=== PATIENT | female | born 1960 | race Caucasian/White ===

== ENCOUNTER 2016-08-25 06:58 | Day surgery (SDC) | END 2016-08-25 12:55 | disposition home or self-care (01) | DX: I25.10 Atherosclerotic heart disease of native coronary artery without angina pectoris (principal); I25.2 Old myocardial infarction | CPT/HCPCS: 80048; 85025; 85610; 85730; 93005; 93458; C1769; C1887; J1644; J2250; J3010; Z7610 ==

== ENCOUNTER 2016-12-23 07:54 | Day surgery (SDC) | payer OTHER ==
[~2016-12-23] VITALS: Ht 152.4 cm; Wt 109.9 kg
[~2016-12-23 07:54] MED LIST: AMLO-147 PO; ASPI-535 PO; ATOR40TA68 PO; Carvedilol PO; HYDR12.53 PO; LOSA100T47 PO; METF500T4 PO; MULT1TAB6 PO; PANT40TA4 PO; RANI150T9 PO
[2016-12-23] MEDS ORDERED: LIDOCAINE 2% (SDV) 5 ML INJ ONE (08:39)
[2016-12-23] MEDS ORDERED: PROPOFOL 20 ML ONE (08:39)
[2016-12-23] MEDS ORDERED: MIDAZOLAM 1 MG/ML 2 ML INJ ONE (08:40)
[2016-12-23 08:42] VITALS: Ht 152.4 cm; Wt 109.9 kg
[2016-12-23] MEDS ORDERED: OMEGA 3 (08:48)
[2016-12-23 09:41] VITALS: BP 143/73; PULSE 59; RESP 20
--- NOTE | 2016-12-23 10:38 | GILP ---
DATE OF PROCEDURE: PROCEDURE: EGD with biopsy. INDICATION: A 56-year-old female undergoing this procedure for abdominal pain of 2 years' duration. The risk of the procedure, related and unrelated complications, anesthetic risks and alternatives discussed and informed consent was obtained. DESCRIPTION OF PROCEDURE: The patient was brought to the GI lab, sedated by Dr. Sommer. After obtain ment of sedation, scope was passed with much ease into esophagus. Esophagus was grossly within norm al limits. Z line was at 36 cm. The patient had of esophageal ulcer at Z line consistent with the diagnosis of LA class B esophagitis. She also had a linear erosion in the distal part of the esopha shawn, stomach, mucosa revealed gastritis. Duodenum, first and second part was within normal limits. Multiple biopsies obtained from stomach to rule out H. pylori infection. Duodenum was normal, both first and second part including ampulla. Scope was then straightened out and removed with good pat ient tolerance. IMPRESSION: 1. Erosive esophagitis, LA class B. 2. Chronic gastritis. 3. Small hiatal hernia. 4. Normal duodenum. PLAN: Review histopathology. Will start the patient empirically on PPI. Dictated By: RAQUEL GARCIA/NTS Conf#: [id number] DID#: [id number] CC: RAQUEL KAUR MD;*EndCC*
== END 2016-12-23 18:00 | disposition home or self-care (01) ==
LOC: GIL 07:54
PROVIDERS: ATTEND Internal Medicine Gastroenterology
DX: K20.8 Other esophagitis (principal); K29.50 Unspecified chronic gastritis without bleeding; K44.9 Diaphragmatic hernia without obstruction or gangrene; I10 Essential (primary) hypertension; E11.9 Type 2 diabetes mellitus without complications; E78.5 Hyperlipidemia, unspecified; E66.01 Morbid (severe) obesity due to excess calories; Z68.42 Body mass index [BMI] 45.0-49.9, adult
CPT/HCPCS: 43239; 82962; 88305; 88312; J2250; Z7610

== ENCOUNTER 2017-10-19 08:47 | Emergency (ER) | END 2017-10-19 11:55 | disposition home or self-care (01) ==

== ENCOUNTER 2018-04-16 17:43 | Emergency (ER) | END 2018-04-16 18:48 | disposition home or self-care (01) ==

== ENCOUNTER 2018-08-07 13:22 | Emergency (ER) | payer OTHER ==
[~2018-08-07] VITALS: Ht 149.9 cm; Wt 115.3 kg
[~2018-08-07 13:22] MED LIST changes: +ALBU18HF INHALATION; +AZIT250T PO; +BENZ-6 PO; +ERYT1OIN6 BOTH EYES; +IBUP-1561 PO; +LOSA100T3 PO; -LOSA100T47 PO; +METF500T24 PO; -METF500T4 PO; +OMEGA 3; -PANT40TA4 PO; -RANI150T9 PO
[2018-08-07 13:34] VITALS: BP 138/78; PULSE 88; RESP 18; Ht 149.9 cm; Wt 115.3 kg
[2018-08-07] MEDS ORDERED: ONDANSETRON (ODT) 4 MG TAB ODT STA (14:04)
--- NOTE | 2018-08-07 14:07 | ERD ---
ER Documentation Chief Complaint Chief Complaint cough/[place], sore throat, fever x 3 days HPI 58-year-old female, with history of hypertension and diabetes, presents to the emergency department, complaining of 3 days with sore throat, fever, nausea, cough and general malaise. The patient denies chest pain, no shortness of breath. She has been taking Tylenol with modest improvement of the symptoms. ROS All systems reviewed and are negative except as per history of present illness. Medications Home Meds Active Scripts Acetaminophen* (Tylenol*) 325 Mg Tablet, 2 TAB PO Q8 PRN for PAIN AND OR ELEVATED TEMP, #20 TAB Prov:KYA SHULTZ MD 08/07/18 Amoxicillin* (Amoxicillin*) 500 Mg Cap, 500 MG PO TID for 10 Days, CAP Prov:KYA SHULTZ MD 08/07/18 Ibuprofen* (Motrin*) 400 Mg Tab, 400 MG PO Q6, #30 TAB Prov:HIMA DIEZ PA-C 04/16/18 Erythromycin Base (Erythromycin) 1 Gm Oint...g., 1 APPLIC BOTH EYES QID for 10 Days Prov:HIMA DIEZ PA-C 04/16/18 Albuterol Sulfate* (Ventolin HFA*) 18 Gm Hfa.aer.ad, 2 PUFF INHALATION Q4H, #1 INHALER Prov:DANIEL PARKINSON PA-C 10/19/17 Benzonatate* (Tessalon Perle*) 100 Mg Capsule, 100 MG PO Q8H PRN for COUGH, #20 CAP Prov:DANIEL PARKINSON PA-C 10/19/17 Azithromycin* (Zithromax*) 250 Mg Tablet, 250 MG PO .ZPACK DIRECTED, #6 TAB TAKE 500 MG (2 TABS) THE FIRST DAY THEN 250 MG (1 TAB) DAYS 2-5 Prov:DANIEL PARKINSON PA-C 10/19/17 Amlodipine Besylate* (Amlodipine Besylate*) 10 Mg Tablet, 10 MG PO DAILY, #90 TAB Prov:LIBERTAD SEAMAN MD 06/21/15 Hydrochlorothiazide (Hydrochlorothiazide) 12.5 Mg Cap, 12.5 MG PO DAILY, #90 Prov:LIBERTAD SEAMAN MD 06/21/15 [Carvedilol] 6.25 MG TAB No Conflict Check, 6.25 MG PO BID, #180 TAB Prov:LIBERTAD SEAMAN MD 06/21/15 Losartan Potassium* (Cozaar*) 100 Mg Tablet, 100 MG PO BID, #180 Prov:LIBERTAD SEAMAN MD 06/21/15 Reported Medications [[place] 3] No Conflict Check 12/23/16 Aspirin Ec (Aspir 81) 81 Mg Tablet.dr, 81 MG PO DAILY, #30 TAB 08/25/16 Atorvastatin* (Atorvastatin*) 40 Mg Tablet, 40 MG PO HS, TAB 06/19/15 Folic Acid/Mv,Fe,Other Min (Centrum Complete Multivit Tab) 1 Each Tablet, 1 EACH PO DAILY 12/21/14 Metformin Hcl* (Metformin Hcl*) 500 Mg Tablet, 500 MG PO DAILY 12/12/13 Allergies Allergies: Coded Allergies: No Known Drug Allergies (Verified Allergy, Unknown, 08/25/16) PMhx/Soc History of Surgery: Yes (HYSTERECTOMY, KNEE, KIDNEY) Anesthesia Reaction: No Hx Neurological Disorder: No Hx Respiratory Disorders: No Hx Cardiac Disorders: No (HYPERTENSION) Hx Psychiatric Problems: No Hx Miscellaneous Medical Probl: Yes (HYPERLIPIDEMIA) Hx Alcohol Use: No Hx Substance Use: No Hx Tobacco Use: No Smoking Status: Never smoker FmHx Family History: diabetes; No coronary disease Physical Exam Vitals Vital Signs Date Temp Pulse Resp B/P (MAP) Pulse Ox O2 O2 Flow FiO2 Time Delivery Rate 08/07/18 97.7 88 18 138/78 96 13:34 (98) Physical Exam Const: No acute distress Head: Atraumatic Eyes: Normal Conjunctiva ENT: Tonsils enlarged with bilateral exudates. Neck: Full range of motion. No meningismus. Resp: Clear to auscultation bilaterally Cardio: Regular rate and rhythm, no murmurs Abd: Soft, non tender, non distended. Normal bowel sounds Skin: No petechiae or rashes Back: No midline or flank tenderness Ext: No cyanosis, or edema Neur: Awake and alert Psych: Normal Mood and Affect Results 24 hrs Current Medications Medications Dose Sig/Benjamin Start Time Status Last (Trade) Ordered Route PRN Stop Time Admin Dose Reason Admin Ondansetron 8 mg ONCE STAT 08/07/18 DC 08/07/18 HCl (Zofran ODT 14:04 1/5/19 14:08 Odt) 14:05 Procedures/MDM Differential diagnosis include but not limited to: Tonsillar/pharyngeal infection bacterial/viral/fungal, parotitis, allergies, GERD. Less likely peritonsillar abscess, retropharyngeal abscess. No signs of upper respiratory obstruction Physical examination and clinical presentation consistent most likely with acute suppurative tonsillitis. Centor criteria 4/5. During the ED course the patient remained stable, fever resolved with medica tions given in the ER, no new complaints. Clinical impression discussed with the patient who agrees with management. The patient is stable to be treated outpatient and will be discharged home with a Rx for antibiotic and ibuprofen. Some side effects of prescribed medications (headache, rash, nausea, vomiting, diarrhea, drowsiness, habituation, bleeding, hypertension, interactions with other medications) were reviewed. The patient was instructed to follow up with the primary care provider in the next 48h. If symptoms persist, worsen or new symptoms develop, then patient should return to the ED immediately. Disclaimer: Inadvertent spelling and grammatical errors are likely due to EHR/dictation software use and do not reflect on the overall quality of patient care. Also, please note that the electronic time recorded on this note does not necessarily reflect the actual time of the patient encounter. Departure Diagnosis: Primary Impression: Acute suppurative tonsillitis Condition: Stable Additional Instructions: Muchas amy por [facility] para garrett servicio. Esperamos que en garrett visita a la candace de emergencia garrett problema medico haya sido solucionado y que se sienta mucho mejor. Para estar seguros que garrett mejoria sigue en proceso, le pedimos el favor de hacer jessica julia de seguimiento medico con garrett doctor primario en los proximos 2-4 mcpherson. Lleve con usted estos documentos y las medicinas recetadas. Si vikas sintomas empeoran, NO SE ESPERE, por favor regrese a candace de emergencia INMEDIATAMENTE. En jay que usted no tenga un mdico de atencin primaria: Llame al mdico o clnica comunitaria de referencia que aparece abajo michelle las horas de consultorio para hacer jessica julia para que le vean. CLINICAS: [facility] [phone] [facility] [phone] [facility] [phone] [address] [place] [phone] [place] [address] [phone] [facility] [phone] KYA COLVIN MD Aug 07, 2018 14:07
[2018-08-07] MEDS ORDERED: ACET325T33 PO (14:18)
[2018-08-07] MEDS ORDERED: AMOX500C2 PO (14:18)
== END 2018-08-07 14:38 | disposition home or self-care (01) ==
LOC: FTE 13:22
DX: J03.90 Acute tonsillitis, unspecified (principal); I10 Essential (primary) hypertension; E11.9 Type 2 diabetes mellitus without complications; Z79.82 Long term (current) use of aspirin; Z79.84 Long term (current) use of oral hypoglycemic drugs
CPT/HCPCS: Z7502; Z7610; 99283

== ENCOUNTER 2018-11-09 09:01 | Day surgery (SDC) | payer OTHER ==
[~2018-11-09] VITALS: Ht 152.4 cm; Wt 109.0 kg
[~2018-11-09 09:01] MED LIST changes: +ACET325T33 PO; +AMOX500C2 PO; +PROPOFOL 200 MG INJ ONE
--- NOTE | 2018-11-09 09:49 | PREAC ---
Date/Time of Note Date/Time of Note DATE: 11/09/18 TIME: 09:46 Anesthesia Eval and Record Evaluation Time Pre-Procedure Interview DATE: 11/09/18 TIME: 09:46 Age 58 Sex female NPO: 8 hrs Preoperative diagnosis EPIGASTRIC PAIN, RECTAL BLEED Planned procedure EGD AND COLON Past Medical History Past Medical History: Includes Cardio: HTN, Dyslipidemia Endo: Diabetes Renal: Other (RENAL CELL CA S/P NEPHRECTPMY) GI: Obesity Heme: Anemia Surgery & Anesthesia Issues No known issue Meds Anticoagulation: No Beta Junior within 24 hr: No Reason Beta Junior not given: Pt. not on B-Junior Active Scripts Acetaminophen* (Tylenol*) 325 Mg Tablet, 2 TAB PO Q8 PRN for PAIN AND OR ELEVATED TEMP, #20 TAB Prov:KYA SHULTZ MD 08/07/18 Amoxicillin* (Amoxicillin*) 500 Mg Cap, 500 MG PO TID for 10 Days, CAP Prov:KYA SHULTZ MD 08/07/18 Ibuprofen* (Motrin*) 400 Mg Tab, 400 MG PO Q6, #30 TAB Prov:HIMA DIEZ PA-C 04/16/18 Erythromycin Base (Erythromycin) 1 Gm Oint...g., 1 APPLIC BOTH EYES QID for 10 Days Prov:HIMA DIEZ PA-C 04/16/18 Albuterol Sulfate* (Ventolin HFA*) 18 Gm Hfa.aer.ad, 2 PUFF INHALATION Q4H, #1 INHALER Prov:DANIEL PARKINSON PA-C 10/19/17 Benzonatate* (Tessalon Perle*) 100 Mg Capsule, 100 MG PO Q8H PRN for COUGH, #20 CAP Prov:DANIEL PARKINSON PA-C 10/19/17 Azithromycin* (Zithromax*) 250 Mg Tablet, 250 MG PO .ZPACK DIRECTED, #6 TAB TAKE 500 MG (2 TABS) THE FIRST DAY THEN 250 MG (1 TAB) DAYS 2-5 Prov:DANIEL PARKINSON PA-C 10/19/17 Amlodipine Besylate* (Amlodipine Besylate*) 10 Mg Tablet, 10 MG PO DAILY, #90 TAB Prov:LIBERTAD SEAMAN MD 06/21/15 Hydrochlorothiazide (Hydrochlorothiazide) 12.5 Mg Cap, 12.5 MG PO DAILY, #90 Prov:LIBERTAD SEAMAN MD 06/21/15 [Carvedilol] 6.25 MG TAB No Conflict Check, 6.25 MG PO BID, #180 TAB Prov:LIBERTAD SEAMAN MD 06/21/15 Losartan Potassium* (Cozaar*) 100 Mg Tablet, 100 MG PO BID, #180 Prov:LIBERTAD SEAMAN MD 06/21/15 Reported Medications [[place] 3] No Conflict Check 12/23/16 Aspirin Ec (Aspir 81) 81 Mg Tablet.dr, 81 MG PO DAILY, #30 TAB 08/25/16 Atorvastatin* (Atorvastatin*) 40 Mg Tablet, 40 MG PO HS, TAB 06/19/15 Folic Acid/Mv,Fe,Other Min (Centrum Complete Multivit Tab) 1 Each Tablet, 1 EACH PO DAILY 12/21/14 Metformin Hcl* (Metformin Hcl*) 500 Mg Tablet, 500 MG PO DAILY 12/12/13 Meds reviewed: Yes Allergies Coded Allergies: No Known Drug Allergies (Verified Allergy, Unknown, 08/25/16) Allergies Reviewed: Yes Labs/Studies Labs Reviewed: Reviewed by anesthesiologist test: N/A Pre-procedure Exam Airway: Adequate mouth opening, Adequate thyromental dist Mallampati: Mallampati II Teeth: Normal Lung: Normal Heart: Normal ASA Physical Status ASA physical status: 3 Emergency: None Planned Anesthetic General/MAC: MAC Planned Pain Management Parenteral pain med Pre-operative Attestations Prior to commencing anesthesia and surgery, the patient was re-evaluated, there was verification of: *The patient's identity *The results of appropriate recent lab work and preoperative vital signs *The above evaluation not changing prior to induction *Anesthetic plan, risk benefits, alternative and complications discussed with patient/family; questions answered; patient/family understands, accepts and wishes to proceed. RACHEL GALINDO Nov 09, 2018 09:49
[2018-11-09] MEDS ORDERED: PROPOFOL 60 ML ONE (09:50)
[2018-11-09] MEDS ORDERED: LIDOCAINE 2% (SDV) 5 ML INJ ONE (09:51)
[2018-11-09] MEDS ORDERED: CLONIDINE (09:52)
[2018-11-09] MEDS ORDERED: RANITIDINE (09:52)
[2018-11-09] MEDS ORDERED: PROTONIX (09:52)
[2018-11-09] MEDS ORDERED: ALLOPURINOL (09:52)
[2018-11-09] MEDS ORDERED: AMLODIPINE (09:55)
[2018-11-09] MEDS ORDERED: COREG (09:55)
[2018-11-09] MEDS ORDERED: LOSARTAN (09:55)
[2018-11-09] MEDS ORDERED: HYDROCHLOROTHIAZIDE (09:57)
[2018-11-09] MEDS ORDERED: EPHEDrine SULFATE 50 MG/5 ML SYG IV PRN (10:00)
[2018-11-09] MEDS ORDERED: LABETALOL HCL 20MG INJ IV PRN (10:00)
[2018-11-09] MEDS ORDERED: ONDANSETRON 4 MG INJ IV PRN (10:00)
[2018-11-09] MEDS ORDERED: ALBUTEROL 0.083% (NEB) 2.5 MG/3 ML AMP HHN PRN (10:00)
[2018-11-09] MEDS ORDERED: FENTAnyl 50 MCG/ML VIAL IV PRN (10:00)
[2018-11-09] MEDS ORDERED: METOCLOPRAMIDE 10 MG INJ IV PRN (10:00)
[2018-11-09] MEDS ORDERED: hydrALAzine 20 MG INJ IV PRN (10:00)
[2018-11-09 10:02] VITALS: Ht 152.4 cm; Wt 109.0 kg
[2018-11-09 10:08] VITALS: BP 154/74; PULSE 64; RESP 19
--- NOTE | 2018-11-09 10:47 | PAC ---
Date/Time of Note Date/Time of Note DATE: 11/09/18 TIME: 10:46 Post-Anesthesia Notes Post-Anesthesia Note Last documented vital signs Vital Signs Date Temp Pulse Resp B/P (MAP) Pulse Ox O2 O2 Flow FiO2 Time Delivery Rate 11/09/18 98.0 64 19 154/74 94 Room Air 1047 (100) Activity: WNL Respiratory function: WNL Cardiovascular function: WNL Mental status: Baseline Pain reasonably controlled: Yes Hydration appropriate: Yes Nausea/Vomiting absent: Yes RACHEL GALINDO Nov 09, 2018 10:47
[2018-11-09 11:06] VITALS: BP 145/85; PULSE 56; RESP 12
== END 2018-11-09 12:13 | disposition home or self-care (01) ==
LOC: GIL 09:01
PROVIDERS: ATTEND Internal Medicine Gastroenterology
DX: Z12.11 Encounter for screening for malignant neoplasm of colon (principal); K64.8 Other hemorrhoids; K64.4 Residual hemorrhoidal skin tags; D12.4 Benign neoplasm of descending colon; D12.2 Benign neoplasm of ascending colon; K29.00 Acute gastritis without bleeding; K29.50 Unspecified chronic gastritis without bleeding; I10 Essential (primary) hypertension; E11.9 Type 2 diabetes mellitus without complications; Z79.82 Long term (current) use of aspirin; Z79.84 Long term (current) use of oral hypoglycemic drugs
CPT/HCPCS: 43239; 45385; 82962; 88305; 88312; 88313; Z7610

== ENCOUNTER 2019-03-23 16:25 | Emergency (ER) | payer OTHER ==
[~2019-03-23] VITALS: Ht 157.5 cm; Wt 114.8 kg
[~2019-03-23 16:25] MED LIST changes: -ACET325T33 PO; -ALBU18HF INHALATION; +ALLOPURINOL; +AMLODIPINE; -AMOX500C2 PO; -AZIT250T PO; -BENZ-6 PO; +CLONIDINE; +COREG; -ERYT1OIN6 BOTH EYES; +HYDROCHLOROTHIAZIDE; -IBUP-1561 PO; +LOSARTAN; -MULT1TAB6 PO; +NAPR-985 PO; -PROPOFOL 200 MG INJ ONE; +PROTONIX; +RANITIDINE
[2019-03-23 16:28] VITALS: Ht 157.5 cm; Wt 114.8 kg
[2019-03-23] MEDS ORDERED: KETOROLAC 30 MG INJ IM STA (17:01)
[2019-03-23] MEDS ORDERED: DEXAMETHASONE 10 MG/ML 1 ML INJ IM ONE (17:30)
[2019-03-23 17:49] VITALS: BP 170/84; PULSE 104; RESP 18
== END 2019-03-23 17:50 | disposition home or self-care (01) ==
LOC: FTE 16:25
DX: M25.571 Pain in right ankle and joints of right foot (principal); E11.9 Type 2 diabetes mellitus without complications; I10 Essential (primary) hypertension; M25.572 Pain in left ankle and joints of left foot; M25.562 Pain in left knee; M25.561 Pain in right knee; M54.2 Cervicalgia; M54.5 Low back pain; Z79.82 Long term (current) use of aspirin; Z79.84 Long term (current) use of oral hypoglycemic drugs
CPT/HCPCS: 96372; J1100; J1885; Z7502